=== PATIENT | male | born 1970 | race Caucasian/White ===

== ENCOUNTER 2017-03-23 11:01 | Inpatient (IN) | payer MEDICARE, OTHER ==
[2017-03-23 12:10] LABS: ABS Basophils 0 10^3/ul (0-0.2); ABS Eosinophils 0.1 10^3/ul (0-0.6); ABS Lymphocytes 1.4 10^3/ul (1.0-4.8); ABS Monocytes 0.4 10^3/ul (0-0.8); ABS Neutrophils 5.6 10^3/ul (1.5-7.7); ABS Nucleated RBC 0 10^3/ul; Eosinophil % 1.3 % (0-6); Hematocrit 45 % (42-52); Hemoglobin 15.3 g/dl (14.0-18.0); Mean Corpuscular HGB Conc 34 g/dl (31-36); Mean Corpuscular Hemoglobin 32 pg (27-31); Mean Corpuscular Volume 94 fL (80-94); Mean Platelet Volume 8 um3 (7.4-10.4); Nucleated Red Blood Cells % 0.1; Platelet Count 288 10^3/ul (150-450); Red Blood Count 4.75 10^6/ul (4.0-5.4); Red Cell Distribution Width 13 % (10.5-15); White Blood Count 7.6 10^3/ul (3.5-10.8)
[2017-03-23 12:15] LABS: Urine Appearance Clear; Urine Blood Negative (Negative); Urine Color Yellow; Urine Ketones Negative (Negative); Urine Protein Negative (Negative); Urine Specific Gravity 1.006 (1.010-1.030); Urine Urobilinogen Negative (Negative)
--- NOTE | 2017-03-23 12:32 | ED ---
Psychiatric Complaint - HPI Summary HPI Summary: Pt here w/ SI - has had them "for a while" but worsening past few weeks. No triggering sx as of late. Admits to history of SI w/ plan and/or attempts at least 5 or 6 times with admission in the past to [facility]. This is his first time here at [facility]. He takes Valium, lithium, Latuda. He also reports a medical issue of thyroid dysfunction which he treats with Synthroid. He is followed for medical care in [facility]. Denies any physical complaints at this time and no recent illness or injury. - History Of Current Complaint Chief Complaint: EDMentalHealth Time Seen by Provider: 03/23/17 11:07 Hx Obtained From: Patient - Allergies/Home Medications Allergies/Adverse Reactions: Allergies Allergy/AdvReac Type Severity Reaction Status Date / Time No Known Allergies Allergy Verified 03/23/17 11:47 Home Medications: Home Medications Levothyroxine TAB* [Synthroid TAB*] 25 mcg PO DAILY 03/23/17 [History Confirmed 03/23/17] [place] Carbonate TAB* 600 mg PO QAM 03/23/17 [History Confirmed 03/23/17] [place] Carbonate TAB* 900 mg PO QPM 03/23/17 [History Confirmed 03/23/17] Lurasidone(*) [Latuda] 120 mg PO DAILY 03/23/17 [History Confirmed 03/23/17] buPROPion TAB* [Wellbutrin TAB*] 75 mg PO DAILY 03/23/17 [History Confirmed ] PMH/Surg Hx/FS Hx/Imm Hx Previously Healthy: Yes Endocrine/Hematology History: Reports: Hx Thyroid Disease - takes sythroid Musculoskeletal History: Reports: Hx Tendonitis - "rotator cuff issue" Psychiatric History: Reports: Hx Depression, Hx Suicide Attempt Infectious Disease History: No Infectious Disease History: Denies: Traveled Outside the [place] in Last 30 Days - Family History Known Family History: Positive: Other - mental health issues in cousins - Social History Occupation: Disabled Lives: Dormitory/Roommates Alcohol Use: Occasionally Substance Use Type: Reports: Marijuana - once last month - made him feel relaxed Substance Use Comment - Amount & Last Used: Occasional Hx Tobacco Use: Yes Smoking Status (MU): Current Every Day Smoker Review of Systems Constitutional: Negative Eyes: Negative ENT: Negative Cardiovascular: Negative Respiratory: Negative Gastrointestinal: Negative Positive: no symptoms reported Musculoskeletal: Other - chronic shoulder pain from rotator cuff injury Skin: Negative Neurological: Negative Psychological: Other - SI All Other Systems Reviewed And Are Negative: Yes Physical Exam Triage Information Reviewed: Yes Vital Signs On Initial Exam: Initial Vitals Temp Pulse Resp BP Pulse Ox 97.6 F 69 16 146/88 100 03/23/17 11:03 03/23/17 11:03 03/23/17 11:03 03/23/17 11:03 03/23/17 11:03 Vital Signs Reviewed: Yes Appearance: Positive: Well-Appearing, No Pain Distress, Well-Nourished Skin: Positive: Warm, Skin Color Reflects Adequate Perfusion, Dry Head/Face: Positive: Normal Head/Face Inspection Eyes: Positive: Normal, EOMI ENT: Positive: Hearing grossly normal Neck: Positive: Supple Respiratory/Lung Sounds: Positive: Breath Sounds Present Cardiovascular: Positive: Normal, RRR, Pulses are Symmetrical in both Upper and Lower Extremities Abdomen Description: Positive: Nontender, Soft Musculoskeletal: Positive: Other - appears comfortable resting on stretcher in reclined position - moving UE's naturally during conversation w/o acute distress and reports he does not feel that his shoulder discomfort is affecting his mood as his mood was poor prior to this pain and injury Neurological: Positive: Normal, Sensory/Motor Intact, Alert, Oriented to Person Place, Time, CN Intact II-III Psychiatric: Positive: Normal Diagnostics - Vital Signs Vital Signs Temp Pulse Resp BP Pulse Ox 03/23/17 11:03 97.6 F 69 16 146/88 100 - Laboratory Lab Results: Lab Results 03/23/17 03/23/17 03/23/17 Range/Units 11:30 11:30 11:53 WBC 7.6 (3.5-10.8) 10^3/ul RBC 4.75 (4.0-5.4) 10^6/ul Hgb 15.3 (14.0-18.0) g/dl Hct 45 (42-52) % MCV 94 (80-94) fL MCH 32 H (27-31) pg MCHC 34 (31-36) g/dl RDW 13 (10.5-15) % Plt Count 288 (150-450) 10^3/ul MPV 8 (7.4-10.4) um3 Neut % (Auto) 73.6 (38-83) % Lymph % (Auto) 19.0 L (25-47) % Stanton % (Auto) 5.5 (1-9) % Eos % (Auto) 1.3 (0-6) % Baso % (Auto) 0.6 (0-2) % Absolute Neuts (auto) 5.6 (1.5-7.7) 10^3/ul Absolute Lymphs (auto) 1.4 (1.0-4.8) 10^3/ul Absolute Monos (auto) 0.4 (0-0.8) 10^3/ul Absolute Eos (auto) 0.1 (0-0.6) 10^3/ul Absolute Basos (auto) 0 (0-0.2) 10^3/ul Absolute Nucleated RBC 0 10^3/ul Nucleated RBC % 0.1 Urine Color Yellow Urine Appearance Clear Urine pH 6.0 (5-9) Ur Specific [place] 1.006 L (1.010-1.030) Urine Protein Negative (Negative) Urine Ketones Negative (Negative) Urine Blood Negative (Negative) Urine Nitrate Negative (Negative) Urine Bilirubin Negative (Negative) Urine Urobilinogen Negative (Negative) Ur Leukocyte Esterase Negative (Negative) Urine Glucose Negative (Negative) Urine Opiates Screen None detected (None Detect) Ur Barbiturates Screen None detected (None Detect) Ur Phencyclidine Scrn None detected (None Detect) Ur Amphetamines Screen None detected (None Detect) U Benzodiazepines Scrn Presumptive positive H (None Detect) Urine Cocaine Screen None detected (None Detect) U Cannabinoids Screen None detected (None Detect) Result Diagrams: 03/23/17 11:53 03/23/17 11:53 Lab Statement: Any lab studies that have been ordered have been reviewed, and results considered in the medical decision making process. Course/Dx - Course Course Of Treatment: Patient here with acute on chronic SI. Reports he's had episodes like this in the past with attempts up to 5-6 times with admission. He is medically cleared for mental health evaluation. Signed out to Marita Maria PA-C. Stable at time of transition of care. - Differential Dx/Clinical Impression Provider Diagnosis: Suicidal ideation Discharge - Discharge Plan Condition: Stable Disposition: OTHER Discharge Disposition Comment: signed out
--- NOTE | 2017-03-23 18:09 | ED ---
Marcia Real Gabriel, scribed for Juancarlos Rodriguez MD on 03/23/17 at 1807 . Progress - Progress Note Progress Note: Dr. Nunes has reviewed the patient and has recommended the patient be admitted with schizophrenia - Consult/PCP Time Called: 15:00 Course/Dx - Course Course Of Treatment: Patient here with acute on chronic SI. Reports he's had episodes like this in the past with attempts up to 5-6 times with admission. He is medically cleared for mental health evaluation. Signed out to Marita Leger at time of transition of care. - Diagnoses Provider Diagnoses: Suicidal ideation The documentation as recorded by the Marcia rose Gabriel accurately reflects the service I personally performed and the decisions made by , Juancarlos Rodriguez MD.
[2017-03-23] MEDS ORDERED: Lithium Carbonate TAB* 300 MG ONE (21:07)
[2017-03-23] MEDS ORDERED: Diazepam TAB(*) 2 MG ONE (21:07)
[2017-03-23] MEDS ORDERED: Al Hydrox/Mg Hydrox/Simet LIQ* 30 ML UDC PO PRN (21:25)
[2017-03-23] MEDS ORDERED: Acetaminophen TAB* 325 MG PO PRN (21:25)
[2017-03-23] MEDS ORDERED: Nicotine GUM* 2 MG PO PRN (21:25)
[2017-03-23] MEDS: Diazepam TAB(*) 2 MG PO SCH (23:02)
[2017-03-24] MEDS: Mouth Piece, Nicotine* 1 EACH CARTRIDGE INH ONE ×2 (01:23→13:00)
[2017-03-24] MEDS: Diazepam TAB(*) 2 MG PO SCH ×2 (07:48→13:12)
[2017-03-24] MEDS: Levothyroxine TAB* 25 MCG TAB PO SCH (07:48)
[2017-03-24] MEDS: Lithium Carbonate TAB* 300 MG PO SCH ×2 (07:49→20:07)
[2017-03-24] MEDS: Vitamin THERAPEUTIC TAB PO SCH (07:49)
[2017-03-24] MEDS: LURASIDONE 120 MG PO SCH (07:51)
[2017-03-24] MEDS ORDERED: buPROPion TAB* 75 MG PO SCH (09:00)
[2017-03-24] MEDS: Nicotine Inhaler* 10 MG AMP INH PRN ×4 (13:00→20:07)
--- NOTE | 2017-03-24 23:14 | HP ---
HISTORY AND PHYSICAL: DATE OF ADMISSION: 03/23/17 IDENTIFYING DATA: Johnathon is a 46-year-old mentally disabled male with multiple prior history of hospitalizations at [facility], presented to the [facility] Emergency Room for the first time at the advice of his therapist at [facility] because of intrusive suicidal thought and multiple plans. CHIEF COMPLAINT: "Last few days, my suicidal thoughts got the worst and I have been contemplating to kill myself." HISTORY OF PRESENT ILLNESS: Johnathon with long history of drug and alcohol dependence and multiple prior psychiatric hospitalizations in the context of threatening suicide, came to the emergency department here complaining that he has been severely depressed for last few days and was thinking about ending his life either by running his truck in front of a tractor trailer or obtaining some firearms from his friends and use it to end his life. He reported that to his counselor who advised him to come to the emergency room. He is having difficulty coming up with symptoms of depression, although he said he has been depressed. Only complaints that he can verbalize very clearly are that he has been thinking about suicide couple of weeks after he was started on Wellbutrin. He also reports that he has been chronically suicidal, but this time, his suicidal thoughts got intensified and he was contemplating to end his life either by running his truck in front of tractor trailer or obtaining a gun from one of his friends and use it to end his life. Only symptoms that he can come up with is that he felt weird and sad with hopelessness and worthlessness. The stressors that he mentions are multiple deaths in his family history during last 1 year. Otherwise, he stays home most of the time, cleans his house, watches TV and gets bored as he has lot of time in his hands. There are times during the week that he will go, meet up with his friends and drink beer and smoke. PAST PSYCHIATRIC HISTORY: Remarkable for at least 5 psychiatric hospitalizations at [facility]. He was hospitalized for a few days to a week each time in the context of intensified suicidal thoughts with plans. He sees a nurse practitioner at [facility] who prescribes him medications, which includes Latuda 120 mg daily, lithium carbonate 600 mg in the morning and 900 mg at bedtime, Valium 2 mg 3 times a day , Synthroid 25 mcg once in the morning. He was prescribed Wellbutrin 75 mg to be taken once in the morning. However, I do not see it on his list of medicines sent to us from his pharmacy. PAST MEDICAL HISTORY: Hypothyroidism. ALLERGIES: According to the records, his allergies include AMOXICILLIN and CIALIS. No reaction mentioned. SUBSTANCE USE HISTORY: Johnathon is minimizing his substance use history; however, reports that he had problem with both drugs and alcohol. He used to drink heavily at one point in his life. He was also using street drugs including marijuana and cocaine. He was apprehended with possession of marijuana some 15 years ago and was in legal problems at that time. Nowadays, he drinks once or twice every week and he states he drinks couple of beers or few extras. He also smokes once or twice a week, at times once or twice every month. FAMILY HISTORY: He has 1 biological sister. His parents are . He has one half sister from his mother's side, who has depression and attempted suicide. PERSONAL AND SOCIAL HISTORY: As mentioned in the HPI, Johnathon is mentally disabled because of depression. He was invariably diagnosed with schizophrenia without any history or reporting by him supporting the diagnosis anyway. He was for 15 years and has 5 children from 3 different relationships and continues to pay child support. His oldest is 26-year-old and the youngest 15. He is currently involved in 2 relationships whom he considers his girlfriends. He has not worked in years and received social security benefit because of mental illness. However, he works off the [employer] to supplement his income. He does not have any place of his own, although he can live with his dad. He moves around to live with his friends. He receives about 450 dollars every month from the social security. He does not have any legal problems at this time. PHYSICAL EXAMINATION Physical exam was offered. He declined because he got upset at one point during the interview when I was trying to ask him, probing questions about his mental health as well as substance use disorder. However, he does not appear to be in any physical distress at the time of interview. His vitals show a blood pressure of 146/88, pulse 69, respirations 16, pulse ox 100 on room air. LABORATORY DATA: Labs included CBC with differential, CMP, urinalysis, and tox screen. CBC shows a WBC count of 7.6, hemoglobin 15.3, hematocrit 45, platelets 288. Rest are all unremarkable. Urinalysis unremarkable. Urine drug screen shows positive result on benzodiazepines, rest negative. Comprehensive metabolic profile shows a sodium of 139, potassium 4.1, chloride 105, carbon dioxide 25, BUN 7, creatinine 1.02. Serum lithium level 77. His TSH level was 1.30, which is normal. MENTAL STATUS EXAM: Neatly dressed and groomed male with average height and weight. His personal hygiene is good. He is alert and oriented to time, place, and person. Speech is normal in all spheres. He describes his mood as okay. Observed affect euthymic; however, he gets easily irritated when probing questions are asked. Thought process is logical and goal directed. Thought content is devoid of any delusions or obsessions. Denies any perceptual disturbances. Also, denies any suicidal thoughts today or any plan or intent. His intelligence appears to be average as evidenced by his vocabulary and fund of knowledge. Memory functions are intact in all spheres. Insight and judgement appears to be poor. SUMMARY: This 46-year-old male, currently unemployed, basically homeless with an extensive history of drug and alcohol dependence for long time , came to the emergency room because of intensified suicidal ideation and multiple plans. DIAGNOSES: Unspecified mood disorder, rule out bipolar disorder, rule out substance-induced mood disorder, rule out personality disorder, NOS. TREATMENT PLAN: For now for the patient's safety, Johnathon will remain hospitalized on the behavioral oleksand[facility] unit. Supportive milieu, individual and group therapy will be initiated. His code status will remain full. I will continue this part of his outpatient medications excluding Valium and Wellbutrin and defer choice of replacement of this medications or continuation of such to his assigned psychiatrist on the unit. I actually did not see any reason for him to be on Latuda either, again though that will be up to the assigned psychiatrist to obtain further collaterals from the mental health clinic before making any adjustment to that. I also do not see any reason for him to be on Valium either. [id number]/[facility] #: [id number] E.J. NOBLE HOSPITALPreeti
[2017-03-25] MEDS: Nicotine Inhaler* 10 MG AMP INH PRN ×7 (06:04→20:19)
[2017-03-25] MEDS: LURASIDONE 120 MG PO SCH (08:33)
[2017-03-25] MEDS: Lithium Carbonate TAB* 300 MG PO SCH ×2 (08:33→20:19)
[2017-03-25] MEDS: Vitamin THERAPEUTIC TAB PO SCH (08:34)
[2017-03-25] MEDS: Levothyroxine TAB* 25 MCG TAB PO SCH (08:34)
[2017-03-26] MEDS: Nicotine Inhaler* 10 MG AMP INH PRN ×8 (06:06→22:35)
[2017-03-26] MEDS: Levothyroxine TAB* 25 MCG TAB PO SCH (08:29)
[2017-03-26] MEDS: LURASIDONE 120 MG PO SCH (08:30)
[2017-03-26] MEDS: Lithium Carbonate TAB* 300 MG PO SCH ×2 (08:30→20:11)
[2017-03-26] MEDS: Vitamin THERAPEUTIC TAB PO SCH (08:30)
[2017-03-26] MEDS: Diazepam TAB(*) 2 MG PO PRN ×2 (12:33→20:12)
[2017-03-26] MEDS: Sertraline* 50 MG TAB PO SCH (12:33)
--- NOTE | 2017-03-26 15:27 | PN ---
Subjective - Subjective Service Type: 96453 Hosp care 25 min moderate complexity Subjective: Patient is irritable and reports he tends to be easily frustrated. He describes frustrations with current peer population and medication changes since admission. He recently went to his provider at [facility] and met the PHYSICIAN OFFICE ASSISTANT who is taking over for his current prescriber. She started him on wellbutrin due to increased depression recently. He states he thought wellbutrin would help as it had in the past, but has had worsening SI. He also reports use of valium 2mg TID for social anxiety and explosive d/o. He submitted a 72-hour request on 03/25/17 at 1145. He agrees to remain in hospital overnight to benefit from programming, lithium level and medication changes. Objective - Appearance Appearance: Well Developed/Nourished Dysmorphic Features: Yes Hygiene: Normal Grooming: Well Kept - Behavior Psychomotor Activities: Normal Exhibits Abnormal Movement: No - Attitude and Relatedness Attitude and Relatedness: Irritable Eye Contact: Good - Speech Quality: Unpressured Latencies: Normal Quantity: Appropriate - Mood Patient's Decription of Mood: "Upset" - Affect Observed Affect: Expansive Affect Consistent with: Dysphoria - Thought Process Patient's Thought Process: Circumstantial Thought Content: No Passive Wish, No Suicidal Planning, No Homicidal Ideation, No Paranoid Ideation - Sensorium Experiencing Hallucinations: No, Sensorium is Clear Type of Hallucinations: Visual: No, Auditory: No, Command: No - Level of Consciousness Level of Consciousness: Alert Orientation: Yes Intact, Yes Orientated to Time, Yes Orientated to Place, Yes Orientated to Person - Impulse Control Impulse Control: Poor - Insight and Judgement Insight and Judgement: Fair - Group Participation Particating in Group Activities: Yes - Medication Management Medication Management Adherence: Yes Assessment - Assessment Merits Inpatient Hospitalization: For Immediate Safety, For Stabilization, Pending Safe DC Plan Inpatient DSM-IV Dx: bipolar I d/o; intermittent explosive d/o; social phobia; tobacco use d/o Clinical Impression: 46yo white male with history of multiple hospitalizations at [facility] in [place]. He reports a history of bipolar d/o, social anxiety and intermittent explosive d/o. He trialed wellbutrin recently and had a surge of suicidal ideation. He merits hospitalization for immediate safety and stabilization. Plan - Plan Treatment Plan: Name: KURTIS LEON Birthdate: 1970 [id number] continue acute intensive psychiatric treatment. obtain lithium trough, add hgba1c and lipid panel due to SGA therapy. trial low-dose sertraline for depression and anxiety and reinstate diazepam. decrease observation to q30min. collaborate with outpatient providers. Continued Medication Management: Start Medication Medications: Current Medications Acetaminophen (Tylenol Tab*) 650 mg PO Q4H PRN PRN Reason: PAIN or TEMP > 101 F Al Hydrox/Mg Hydrox/Simethicone (Maalox Plus*) 30 ml PO Q4H PRN PRN Reason: INDIGESTION Diazepam (Valium Tab(*)) 2 mg PO Q8H PRN PRN Reason: ANXIETY Last Admin: 03/26/17 12:33 Dose: 2 mg Levothyroxine Sodium (Synthroid Tab*) 25 mcg PO DAILY@0600 [facility] Last Admin: 03/26/17 08:29 Dose: 25 mcg Murphy Carbonate (Murphy Carbonate Tab*) 900 mg PO BEDTIME [facility] Last Admin: 03/25/17 20:19 Dose: 900 mg Murphy Carbonate (Murphy Carbonate Tab*) 600 mg PO QAM [facility] Last Admin: 03/26/17 08:30 Dose: 600 mg Lurasidone HCl (Latuda) 120 mg PO 1700 [facility] Multivitamins (Theragran Tab*) 1 tab PO DAILY [facility] Last Admin: 03/26/17 08:30 Dose: 1 tab Nicotine (Nicotine Inhaler*) 10 mg INH Q2H PRN PRN Reason: CRAVING Last Admin: 03/26/17 15:17 Dose: 10 mg Nicotine Polacrilex (Nicotine Gum*) 2 mg PO Q2H PRN PRN Reason: CRAVING Sertraline HCl (Zoloft*) 50 mg PO DAILY [facility] Last Admin: 03/26/17 12:33 Dose: 50 mg - Discharge Plan Discharge Plan: Outpatient Follow Up Outpatient Program: [facility]
[2017-03-27] MEDS: Nicotine Inhaler* 10 MG AMP INH PRN ×4 (05:43→12:37)
[2017-03-27] MEDS: Levothyroxine TAB* 25 MCG TAB PO SCH (07:53)
[2017-03-27] MEDS: Vitamin THERAPEUTIC TAB PO SCH (07:53)
[2017-03-27] MEDS: Lithium Carbonate TAB* 300 MG PO SCH (07:54)
[2017-03-27] MEDS: Sertraline* 50 MG TAB PO SCH (07:54)
[2017-03-27] MEDS: Diazepam TAB(*) 2 MG PO PRN (07:54)
[2017-03-27 08:40] VITALS: BP 115/77
--- NOTE | 2017-03-27 12:56 | PN ---
[facility]: Group Therapy Note - Service Type Service Type: 39841 Group Psychotherapy - Cognitive Behavioral Group Therapy ( CBT):Patient was attentive and participatory in CBT programming this morning, and remained in good behavioral control. Patient expressed positive insights regarding relevant treatment interventions and goals.
[2017-03-27] MEDS ORDERED: Lurasidone(*) 120 MG TAB PO SCH (17:00)
--- NOTE | 2017-03-28 23:46 | DS ---
CC: [facility] * DISCHARGE SUMMARY: DATE OF ADMISSION: 03/23/17 DATE OF DISCHARGE: 03/27/17 SUPERVISING PSYCHIATRIST: Dr. Gomez Segundo.* (DICTATED BY EMILY SAHNI NP) DISCHARGE DIAGNOSES: 1. Bipolar 2 disorder, most recent episode depressed. 2. Intermittent explosive disorder. 3. Social phobia. 4. Tobacco use disorder. CONDITION AT THE TIME OF DISCHARGE: Improved. The patient is euthymic and generally pleasant to be around. He reports mild benefit from admission. He states frustration with peer population and when the schedule for programing is not followed entirely. He states that he denies side effects from onset of sertraline. He denies anxiety in this setting. He denies SI, HI or . He reports he is looking forward to returning home and plans to follow up with [facility] where he has gone for many years. MENTAL STATUS EXAM: At the time of discharge, the patient is neatly dressed and groomed. He is a male with average height and weight. He is alert and oriented x3. His eye contact is good. His speech is normal rate, rhythm and volume. He reports his mood as "good" and his affect is congruent. Thought process is logical, goal directed. Concentration is good. His memory is 3/3. Thought content is negative for delusions, depersonalization, AV hallucinations. He denies active suicidal ideation. His insight and judgment are fair. DISCHARGE INSTRUCTIONS GIVEN TO THE PATIENT: A. Medications: Sertraline 50 mg p.o. daily was electronically prescribed to [facility] in [place] per the patient's request. The patient denies need for other medication refills. He will continue the following medications through his provider at [facility]: 1. Levothyroxine 25 mcg p.o. q.a.m. 2. [place] carbonate 600 mg p.o. q.a.m. and 900 mg p.o. q.h.s. 3. Latuda 120 mg p.o. daily with meals. B. Diet: Regular. C: Activities: Ambulation as tolerated. The patient denies tobacco cessation assistance. There are no studies or labs pending at the time of discharge. D. Followup care: As stated above, the patient will follow up with [facility] and has an appointment with his therapist, Heidi, on 03/28/17 at 11 a.m. E. Substance use followup: The patient denied referral for addiction treatment. He denied need for medications for substance use. HOSPITAL COURSE: A. Reason for admission: The patient presented to the emergency department at the advice of his therapist at [facility] because of onset of interest in suicidal thoughts and multiple plans. The patient reports a long history of psychiatric admissions, approximately 5 at [facility]. He was encouraged to come to [facility]. B. Psychiatric treatment rendered: After the patient was seen in the emergency department and medically cleared, he was evaluated by psychiatry staff and admitted to adult behavioral services unit on voluntary status. He was placed on 15 minutes checks for safety. Code status is full. He was encouraged to participate in supportive milieu, individual sessions with staff and psychoeducational groups. Upon arrival, the patient reported new medication of Wellbutrin, which likely coincided with onset of suicidal ideation. The on- call psychiatrist discontinued this and diazepam until full evaluation by attending provider. The patient reported with the exception of Wellbutrin, his current medication regimen has been helpful at avoiding hospitalization. He agreed to a trial of low dose of sertraline for depressed mood and anxiety. He also requested to continue diazepam and this leader writer encouraged him to use on a p.r.n. basis to prevent tolerance and dependence. Laboratory data in the emergency department was unremarkable. His lithium level was 0.77 in the emergency room. This leader writer repeated to get a lithium trough and this was 0.67. Due to antipsychotic therapy, we added on hemoglobin A1c and lipid panel. Hemoglobin A1c was normal at 5.4. Triglycerides 146, cholesterol 198, LDL cholesterol 128, HDL cholesterol 40.5. These are all within normal limits. On full day 4 of admission, the patient reported desire for discharge. He was safe on all checks. He had been decreased to 30 minutes observation. He had placed his 72-hour notice on 03/25/17 at 11:45 a.m. Due to obligation to treat in the least restrictive settings, treatment team agreed upon discharge. The patient was given written information and written discharge instructions and encouraged to call the unit with any questions or concerns after discharge. This leader writer spoke to the patient about his comfortability with returning to [facility] should he have worsening symptoms and he agreed. EMILY SAHNI NP [id number]/[facility] #: [id number] ROMIE
== END 2017-03-27 13:30 | disposition home or self-care (01) | DRG 885 ==
LOC: ED 11:01 → BSU 19:46
PROVIDERS: ADMIT Psychiatry & Neurology Psychiatry; ATTEND Psychiatry & Neurology Psychiatry
PROC: GZHZZZZ Group Psychotherapy (ICD-10-PCS; principal; 2017-03-27)
DX: F31.9 Bipolar disorder, unspecified (principal); R45.851 Suicidal ideations; F20.9 Schizophrenia, unspecified; E03.9 Hypothyroidism, unspecified; F17.200 Nicotine dependence, unspecified, uncomplicated; F12.90 Cannabis use, unspecified, uncomplicated; F40.10 Social phobia, unspecified; F63.81 Intermittent explosive disorder; Z88.0 Allergy status to penicillin; Z88.8 Allergy status to other drugs, medicaments and biological substances; Z81.8 Family history of other mental and behavioral disorders; Z56.0 Unemployment, unspecified; Z88.1 Allergy status to other antibiotic agents; Z59.0 Homelessness; Z91.5 Personal history of self-harm; Z72.89 Other problems related to lifestyle
CPT/HCPCS: 36415; 80053; 80061; 80178; 80307; 80320; 80329; 81003; 83036; 84443; 85025; 99222; 99232; 99238; A9270-GY; G0480